=== PATIENT | male | born 1980 | race Caucasian/White ===

== ENCOUNTER 2018-03-04 09:44 | Outpatient (CLI) | payer BC ==
--- NOTE | 2018-03-04 11:21 | RAD ---
LEFT KNEE 4 VIEWS: History Left knee pain. FINDINGS: Moderate degenerative changes are noted. Mild narrowing of the medial joint space. Spurring from al l joint compartments with spurring from tibial condyles, femoral condyles, and patella. No fracture. No evidence of joint effusion. IMPRESSION: Moderate degenerative changes of left knee. POS: [facility]
== END 2018-03-04 09:45 | disposition home or self-care (01) ==
LOC: RAD 09:44
PROVIDERS: ATTEND Specialist
DX: M25.562 Pain in left knee (principal); M17.12 Unilateral primary osteoarthritis, left knee